=== PATIENT | female | born 1970 | race Caucasian/White ===

== ENCOUNTER 2017-08-01 13:49 | Emergency (ER) | payer BC ==
[2017-08-01 16:24] VITALS: BP 128/78
--- NOTE | 2017-08-01 17:08 | RAD ---
Indication: LEFT anterior shoulder pain following lifting injury 2 days ago. Comparison: No relevant prior exams available on the [facility] [place] [facility] for comparison. Technique: Internal rotation AP, external rotation Grashey, scapular Y, axillary views LEFT shoulder Report: Normal acromioclavicular and glenohumeral joint alignment. Negative for fracture. Moderate acromioclavicular joint osteophytosis. Negative for significant glenohumeral joint space narrowing. Reactive sclerosis at the greater tuberosity favors chronic rotator cuff pathology. Negative for stigmata of calcific tendinopathy or abnormal soft tissue contour. IMPRESSION: Moderate acromioclavicular joint osteoarthritis. Stigmata of probable chronic rotator cuff pathology.
--- NOTE | 2017-08-01 17:10 | UC ---
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 THREE DAYS AGO PT LIFTED A HEAVY BAG OF CLOTHING OVER HER HEAD. HAD SHOOTING PAIN FROM HER SHOULDER TO HER RING FINGER. PAIN IS WORSE AND HAVING PAIN IN HER LEFT NECK WELL. TAKING IBUPROFEN WITH A LITTLE RELIEF" Occured 2 days ago. pain occured suddenly when she was lifting a bag overhead and pushed it onto a shelf with her left hand. she felt a pop and sudden warm sensation going down into her arm suddenly with numbing into 3rd & 4th digits. right hand dominant. pain was worse the following morning. rt hand dominant. has had trelief with ibuprofen 600mgs, gets significant pain when it wears off. - History of Current Complaint Chief Complaint: UCUpperExtremity Stated Complaint: LEFT SHOULDER PAIN Time Seen by Provider: 08/01/17 16:32 Hx Last Menstrual Period: 07/22/17 - Allergies/Home Medications Allergies/Adverse Reactions: Allergies Allergy/AdvReac Type Severity Reaction Status Date / Time Erythromycin Allergy Intermediate Rash Verified 09/21/13 15:09 Penicillins Allergy Intermediate Rash Verified 09/21/13 15:08 PMH/Surg Hx/FS Hx/Imm Hx Previously Healthy: Yes - Surgical History Surgical History: Yes Surgery Procedure, Year, and Place: ESURE INSERTION - Family History Known Family History: Positive: Hypertension - Social History Alcohol Use: Occasionally Substance Use Type: None Smoking Status (MU): Never Smoked Tobacco Review of Systems Constitutional: Negative Skin: Negative Eyes: Negative ENT: Negative Respiratory: Negative Cardiovascular: Negative Gastrointestinal: Negative Genitourinary: Negative Motor: Negative Neurovascular: Negative Musculoskeletal: Arthralgia, Decreased ROM Neurological: Negative Psychological: Negative Is Patient Immunocompromised?: No All Other Systems Reviewed And Are Negative: Yes Physical Exam Triage Information Reviewed: Yes Appearance: Well-Appearing, No Pain Distress, Well-Nourished - wearing sling on left arm Vital Signs: Initial Vital Signs Temp 98.2 F 08/01/17 16:15 Pulse 72 08/01/17 16:15 Resp 18 08/01/17 16:15 BP 128/78 08/01/17 16:15 Pulse Ox 97 08/01/17 16:15 Vital Signs Reviewed: Yes ENT Exam: Normal Neck exam: Normal Respiratory Exam: Normal Respiratory: Positive: Lungs clear Cardiovascular Exam: Normal Cardiovascular: Positive: RRR, No Murmur Musculoskeletal: Positive: Other: - left shoulder tender anteriorly and over AC joint. she is unable to passively flex at all, abduction to 35 degrees. unable to externally rotate, nml internal rotation. CR briks. + 2 radial. sensation intact. strength limited d/t pain. Upper Extremity Course/Dx - Course Course Of Treatment: Left shoulder xray - AC DJD and prob chronic rotator cuff pathology. Ice, nsaids and sling. f/u with ortho in 2 days. she is very agreeable with this plan. - Differential Dx/Diagnosis Differential Diagnosis/HQI/PQRI: Bursitis, Contusion, Strain, Sprain Provider Diagnoses: left shoulder injury Discharge - Discharge Plan Condition: Stable Disposition: HOME Patient Education Materials: Rotator Cuff Injury (ED) Referrals: Nelly Alonso MD [Primary Care Provider] - Lucas Perla MD [Medical Doctor] - 2 Days Additional Instructions: Continue using ice and ibuprofen and the sling. Call the ortho on Thursday
--- NOTE | 2017-08-02 08:30 | ED ---
Progress - Progress Note Progress Note: Pt calls stating motrin is not working. I have reviewed chart. this is an acute injury. We will try course of tramadol. Course/Dx - Course Course Of Treatment: Left shoulder xray - AC DJD and prob chronic rotator cuff pathology. Ice, nsaids and sling. f/u with ortho in 2 days. she is very agreeable with this plan. - Diagnoses Provider Diagnoses: Right shoulder injury
== END 2017-08-01 17:33 | disposition home or self-care (01) ==
LOC: UCCORT 13:49
DX: S49.92XA Unspecified injury of left shoulder and upper arm, initial encounter (principal); X50.0XXA Overexertion from strenuous movement or load, initial encounter; Y93.89 Activity, other specified; Y92.9 Unspecified place or not applicable; Y99.9 Unspecified external cause status
CPT/HCPCS: 99203; G0463